=== PATIENT | female | born 1955 | race Caucasian/White ===

== ENCOUNTER → 2017-09-23 08:51 | Outpatient (CLI) | payer OTHER, SELFPAY ==
--- NOTE | 2017-09-23 08:55 | RAD_ITS ---
STUDY: X-RAY CHEST REASON FOR EXAM: Female, 61 years old. Cough, shortness of breath, right-sided chest pain for 6 months TECHNIQUE: PA and lateral views of the chest. COMPARISON: 08/28/2016 FINDINGS: The right hemidiaphragm remains elevated. There is no focal consolidation. There is no demonstrated pleural abnormality. Normal size heart. Normal mediastinum and sharon. Normal visualized pulmonary arteries. Normal visualized aortic arch and descending thoracic aorta. Normal visualized thoracic spine. Normal visualized ribs, clavicles, and shoulders. There is no demonstrated abnormality of the visualized soft tissue structures of the upper abdomen. RAD/Chest PA and Lateral IMPRESSION: No acute process in the chest. No significant change from 08/28/2016 Electronically Signed: Mu Alas DO at 9:14 EDT Tel , Service support ,
== END ==
PROVIDERS: Family Provider Family Medicine; PCP Family Medicine; Visit Provider Family Medicine
DX: R05 Cough (principal)
CPT/HCPCS: 71046

== ENCOUNTER → 2018-03-04 07:01 | Outpatient (CLI) | payer OTHER, SELFPAY ==
[2018-03-04 10:18] LABS: Absolute Lymphocyte Count 2.73 X10^3/ul (0.83-4.51); Absolute Neutrophil Count 2.4 X10^3/uL (2.0-7.7); Basophil# 0.03 X10^3/uL; Basophil% 0.5 % (0-1); Eosinophil# 0.12 X10^3/uL; Hemoglobin 14.2 g/dl (12.0-15.0); Lymphocyte # 2.73 X10^3/ul (4.0); Mean Corp Hgb Conc 31.6 g/gl (32-36); Mean Corpuscular Hgb 28.9 pg (27.0-32.0); Mean Corpuscular Volume 91.5 fL (81-99); Mean Platelet Vol. 9.8 fl (6.2-12.0); Monocyte# 0.62 X10^3/uL; Monocyte% 10.5 % (0-10); Neutrophil # 2.42 X10^3/uL (2.7-7.7); Neutrophil % 40.8 % (47-70); Platelet Count 337 K/mm3 (150-450); RBC Distribution Width CV 13.8 % (11.6-14.6); RBC Distribution Width SD 45.9 fl (35.1-43.9); Red Blood Count 4.92 M/mm3 (4.2-5.4); White Blood Count 5.9 K/mm3 (4.4-11.0)
[2018-03-04 10:31] LABS: POSITIVE COUNT NO; POSITIVE DIFFERENTIAL NO; POSITIVE MORPHOLOGY NO
[2018-03-04 10:34] LABS: Vitamin D,25 Hydroxy 24.6 ng/mL (29.95-100.01)
[2018-03-04 10:45] LABS: ALB/GLOB Ratio 1.2 RATIO (0.9-2.4); AST(SGOT) 21 U/L (15-37); Alanine Aminotransfer ALT/SGPT 32 U/L (13-56); Albumin, Serum 3.7 g/dL (3.2-5.0); Alkaline Phosphatase 64 U/L (45-117); Anion Gap 9 (5-15); BUN 11 mg/dL (7-18); BUN/Creat Ratio 15.7 RATIO (10-20); Calcium,Total 8.7 mg/dL (8.5-10.1); Chloride 107 mmol/L (98-107); EST Glomerular Filtration Rate 90 mL/min (>60); Est Glom Filt Rate - Afr Amer 109 mL/min (>60); Globulin 3.2 g/dL (2.2-4.2); Glucose 82 mg/dL (74-106); Potassium 4.1 mmol/L (3.5-5.1); Protein, Total 6.9 g/dL (6.4-8.2); Sodium Level 141 mmol/L (136-145)
== END ==
PROVIDERS: Family Provider Family Medicine; PCP Family Medicine; Referring Provider Family Medicine; Visit Provider Family Medicine
DX: I34.1 Nonrheumatic mitral (valve) prolapse (principal); E55.9 Vitamin D deficiency, unspecified
CPT/HCPCS: 36415; 80053; 82306; 85025

== ENCOUNTER → 2018-08-30 10:59 | Outpatient (CLI) | payer OTHER, SELFPAY ==
[2018-08-31 12:57] LABS: Hep C Antibodies <0.1 s/co ratio (0.0-0.9)
== END ==
PROVIDERS: Family Provider Family Medicine; PCP Family Medicine; Referring Provider Family Medicine; Visit Provider Family Medicine
DX: Z11.59 Encounter for screening for other viral diseases (principal)
CPT/HCPCS: 36415; 86803

== ENCOUNTER → 2018-10-13 15:25 | Outpatient (CLI) | payer OTHER, SELFPAY ==
--- NOTE | 2018-10-13 15:30 | BD_ITS ---
STUDY: DUAL ENERGY X-RAY ABSORPTIOMETRY / DXA REASON FOR EXAM: Female, 62 years old. The patient is postmenopausal. No loss of height. TECHNIQUE: Bone Mineral Density (BMD) measurements of lumbar spine and bilateral hips were obtained. COMPARISON: Comparison is made with prior study dated March 07, 2013. FINDINGS: Lumbar Spine (L1-L4): g/cm2 (1.204) / T-score (0.3) / Z-score (1.7) Findings are suggestive of normal bone density with a low fracture risk. Left Femur Total: g/cm2 (1.019) / T-score (0.1) / Z-score (1.1) Left Femoral Neck: g/cm2 (0.928) / T-score (-0.8) / Z-score (0.5) Right Femur Total: g/cm2 (0.996) / T-score (0.1) / Z-score (0.9) Right Femoral Neck: g/cm2 (0.945) / T-score (-0.7) / Z-score (0.6) The T-Scores on the most recent prior examination were: Lumbar Spine (L1-L4): There has been improvement of bone density since the previous examination. Left Femur Total: which represents a worsening of 2.5%. Right Femur Total: which represents a worsening of 2.6%. BD/Dexa Bone Density Study IMPRESSION: The patient is considered normal as outlined below according to World [employer] Organization (WHO) criteria with a low fracture risk. There has been worsening of bone density since the previous examination. Reference Information: The T-score is the number of standard deviations above or below the standard which is normal for young adults at their peak bone mineral density. The World Health Organization (WHO) interprets the T-scores as follows: Above -1 Normal bone density Between -1 and -2.5 Osteopenia Equal to / or below -2.5 Osteoporosis As a practical clinical guideline, osteopenia may be graded as follows: Mild -1 through -1.5 Moderate -1.6 through -2.0 Severe -2.1 through -2.4 The Z-score is the number of standard deviations above or below age-matched controls. A Z-score of less than -1.5 would be considered abnormal. References: 1. NIH Osteoporosis and Related Bone Diseases http://www.osteo.org 2. International Society for Clinical Densitometry http://www.iscd.org 3. National Osteoporosis Foundation http://www.nof.org Electronically Signed: Charlie Rich, at 11:16 EDT , Service support ,
== END ==
PROVIDERS: Family Provider Family Medicine; PCP Family Medicine; Referring Provider Family Medicine; Visit Provider Family Medicine
DX: Z78.0 Asymptomatic menopausal state (principal)
CPT/HCPCS: 77080

== ENCOUNTER → 2019-03-16 14:18 | Outpatient (CLI) | payer OTHER, SELFPAY ==
[2019-03-16 16:01] LABS: Absolute Lymphocyte Count 2.75 X10^3/uL (0.83-4.51); Absolute Neutrophil Count 2.7 X10^3/uL (2.0-7.7); Basophil# 0.04 X10^3/uL; Basophil% 0.7 % (0-1); Eosinophil# 0.06 X10^3/uL; Hematocrit 44.4 % (37-47); Hemoglobin 13.9 g/dL (12.0-15.0); Lymphocyte # 2.75 X10^3/ul (4.0); Lymphocyte % 45.7 % (19-41); Mean Corp Hgb Conc 31.3 g/dL (32-36); Mean Corpuscular Hgb 27.9 pg (27.0-32.0); Mean Platelet Vol. 9.5 fl (6.2-12.0); Monocyte# 0.51 X10^3/uL; Monocyte% 8.5 % (0-10); NRBC Flagged by Analyzer 0 % (0-5); Neutrophil # 2.65 X10^3/uL (2.7-7.7); Neutrophil % 43.9 % (47-70); Platelet Count 325 K/mm3 (150-450); RBC Distribution Width SD 42.2 fl (35.1-43.9); Red Blood Count 4.99 M/mm3 (4.2-5.4)
[2019-03-16 16:07] LABS: ALB/GLOB Ratio 1.1 RATIO (0.9-2.4); AST(SGOT) 23 U/L (15-37); Alanine Aminotransfer ALT/SGPT 43 U/L (13-56); Albumin, Serum 3.9 g/dL (3.2-5.0); Alkaline Phosphatase 65 U/L (45-117); Anion Gap 7 (5-15); BUN 12 mg/dL (7-18); BUN/Creat Ratio 17.7 RATIO (10-20); Calcium,Total 9.3 mg/dL (8.5-10.1); Chloride 108 mmol/L (98-107); Cholesterol 177 mg/dL (200); Creatinine, Serum 0.68 mg/dL (0.55-1.02); EST Glomerular Filtration Rate 93 mL/min (>60); Est Glom Filt Rate - Afr Amer 113 mL/min (>60); Globulin 3.4 g/dL (2.2-4.2); Glucose 83 mg/dL (74-106); High Density Lipoprotein 65 mg/dL; Potassium 3.7 mmol/L (3.5-5.1); Protein, Total 7.3 g/dL (6.4-8.2); Sodium Level 141 mmol/L (136-145); Triglycerides 99 mg/dL; Very Low Density Lipoprotein 20 mg/dL (5-40)
[2019-03-16 16:36] LABS: Rubella IgG > 500.0 IU/mL; Vitamin D,25 Hydroxy 43.2 ng/mL (29.95-100.01)
[2019-03-21 09:11] LABS: Mumps Antibody, IgM < 0.80 AU (0.00-0.79); Rubeola IgG Ab > 300.0 AU/mL (Immune >16.4)
== END ==
PROVIDERS: PCP Family Medicine; Referring Provider Family Medicine; Visit Provider Family Medicine
DX: Z00.00 Encounter for general adult medical examination without abnormal findings (principal); E55.9 Vitamin D deficiency, unspecified; Z13.1 Encounter for screening for diabetes mellitus; Z13.220 Encounter for screening for lipoid disorders
CPT/HCPCS: 36415; 80053; 80061; 82306; 85025; 86735; 86762; 86765

== ENCOUNTER → 2019-09-07 08:32 | Outpatient (CLI) | payer OTHER, SELFPAY ==
--- NOTE | 2019-09-07 09:05 | RAD_ITS ---
STUDY: X-RAY - SACRUM/COCCYX REASON FOR EXAM: Female, 63 years old. PAIN IN SACRAL SPINE TO TAIL BONE FOR ABOUT 1-2 MONTHS. NO KNOWN INJURY. TECHNIQUE: 3 view(s) of the sacrum and coccyx were obtained. COMPARISON: None. FINDINGS: There is degenerative arthrosis of the bilateral sacroiliac joints. Normal visualized sacral ala and fused sacral bodies. Normal sacrococcygeal junction with a normal angulation. Normal coccygeal segments. Phleboliths are seen in the pelvis. RAD/Sacrum-Coccyx min 2 Views IMPRESSION: Mild degenerative changes of the sacroiliac joints bilaterally. Electronically Signed: Charlie Rich, at 12:23 EDT , Service support ,
== END ==
PROVIDERS: PCP Family Medicine; Referring Provider Nurse Practitioner Adult Health; Visit Provider Nurse Practitioner Adult Health
DX: M54.5 Low back pain (principal)
CPT/HCPCS: 72220

== ENCOUNTER → 2019-09-25 11:24 | Outpatient (CLI) | payer OTHER, SELFPAY ==
--- NOTE | 2019-09-25 11:30 | RAD_ITS ---
STUDY: X-RAY - RIGHT FOOT CLINICAL: Female, 63 years old. Right heel pain TECHNIQUE: 3 view(s) of the foot. COMPARISON: None. FINDINGS: There is a plantar calcaneal spur. Normal visualized subtalar, talonavicular, calcaneocuboid, tarsal and tarsometatarsal articulations. Normal metatarsi. Normal metatarsophalangeal joint of the great toe. Normal tibial and fibular sesamoid bones. Normal interphalangeal joint of the great toe. Normal phalanges of the great toe. Normal second through fifth metatarsophalangeal joints. Normal interphalangeal joints and phalanges of the lesser toes. The soft tissue structures are unremarkable. RAD/Foot min 3 Views IMPRESSION: Plantar spur. Electronically Signed: Charlie Rich, at 13:58 EDT , Service support ,
== END ==
PROVIDERS: PCP Family Medicine; Referring Provider Family Medicine; Visit Provider Family Medicine
DX: M79.672 Pain in left foot (principal)
CPT/HCPCS: 73630

== ENCOUNTER 2021-03-19 11:52 | Outpatient (CLI) | payer OTHER, SELFPAY ==
--- NOTE | 2021-03-19 12:00 | RAD_ITS ---
STUDY: X-RAY - LEFT WRIST REASON FOR EXAM: Female, 65 years old. Wrist injury. Pain. TECHNIQUE: 4 view(s) of the wrist were obtained. COMPARISON: None. FINDINGS: Osteopenia. Nondisplaced oblique fracture of the ulnar styloid. Osteoarthritic changes most marked at the first CMC joint. The soft tissue structures are unremarkable. RAD/Wrist min 3 Views IMPRESSION: Osteopenia with osteoarthritic changes. Ulnar styloid fracture as described. Electronically Signed: Keven Apodaca MD at 13:56 EST ,
== END 2021-03-19 23:59 | disposition short-term general hospital (02) ==
PROVIDERS: PCP Family Medicine; Referring Provider Family Medicine; Visit Provider Family Medicine
DX: S69.92XA Unspecified injury of left wrist, hand and finger(s), initial encounter (principal)
CPT/HCPCS: 73110

== ENCOUNTER 2021-03-28 14:45 | Outpatient (CLI) | payer OTHER, SELFPAY ==
--- NOTE | 2021-03-28 14:49 | RAD_ITS ---
STUDY: X-RAY - LEFT WRIST REASON FOR EXAM: Female, 65 years old. PAIN TECHNIQUE: 3 view(s) of the wrist were obtained in a plaster cast.. COMPARISON: Comparison is made with prior study dated 08/17/2021. FINDINGS: Healing fracture of the distal radius. The alignment is well maintained. Normal radiocarpal articulation. Normal distal radioulnar articulation. Normal carpal bones. Normal carpal articulations. Normal carpometacarpal articulation of the thumb. Normal second through fifth carpometacarpal articulations. Normal visualized metacarpal bones. The soft tissue structures are unremarkable. RAD/Wrist min 3 Views IMPRESSION: Healing fracture of the distal radius. The alignment is well maintained. Electronically Signed: Charlie Rich MD at 15:52 EST ,
== END 2021-03-28 23:59 | disposition home or self-care (01) ==
LOC: MTRAD 14:46
PROVIDERS: PCP Family Medicine; Referring Provider Family Medicine; Visit Provider Family Medicine
DX: S52.123A Displaced fracture of head of unspecified radius, initial encounter for closed fracture (principal)
CPT/HCPCS: 73110

== ENCOUNTER 2021-05-01 13:46 | Outpatient (CLI) | payer OTHER, SELFPAY ==
--- NOTE | 2021-05-01 13:49 | RAD_ITS ---
EXAM: XR LEFT WRIST COMPLETE, 3 OR MORE VIEWS CLINICAL INDICATION: left wrist fracture TECHNIQUE: Frontal, lateral and oblique views of the left wrist. This report was created using [employer] report generation technology. COMPARISON: 03/19/2021 and 03/28/2021. FINDINGS: BONES/JOINTS: Mild osteopenia. No visible or obvious acute fracture or dislocation. No sclerotic or destructive changes observed. SOFT TISSUES: Unremarkable. No soft tissue swelling or gas. No radiopaque foreign body. RAD/Wrist min 3 Views IMPRESSION: Mild osteopenia with no visible acute fracture or dislocation of the left wrist. This is presumably due to interval healing of the mild acute fracture of the left distal radius that was described previously. Electronically Signed: Farzad Mancera MD at 15:58 EST ,
== END 2021-05-01 23:59 | disposition home or self-care (01) ==
LOC: MTRAD 13:47
PROVIDERS: PCP Family Medicine; Referring Provider Family Medicine; Visit Provider Family Medicine
DX: S69.92XA Unspecified injury of left wrist, hand and finger(s), initial encounter (principal)
CPT/HCPCS: 73110

== ENCOUNTER → 2022-03-03 | Outpatient (CLI) | payer MEDICARE, OTHER, SELFPAY ==
[2022-03-03 13:19] LABS: ALB/GLOB Ratio 1.2 RATIO (0.9-2.4); AST(SGOT) 27 U/L (15-37); Alanine Aminotransfer ALT/SGPT 27 U/L (13-56); Albumin, Serum 3.7 g/dL (3.2-5.0); Alkaline Phosphatase 56 U/L (45-117); Anion Gap 5 (5-15); BUN 12 mg/dL (7-18); BUN/Creat Ratio 17.4 RATIO (10-20); Chloride 110 mmol/L (98-107); Cholesterol 176 mg/dL (200); Creatinine, Serum 0.69 mg/dL (0.55-1.02); EST Glomerular Filtration Rate 91 mL/min (>60); Est Glom Filt Rate - Afr Amer 110 mL/min (>60); Glucose 88 mg/dL (74-106); High Density Lipoprotein 66 mg/dL; Potassium 4.7 mmol/L (3.5-5.1); Protein, Total 6.7 g/dL (6.4-8.2); Sodium Level 141 mmol/L (136-145); Triglycerides 95 mg/dL; Very Low Density Lipoprotein 19 mg/dL (5-40)
[2022-03-03 13:23] LABS: Vitamin D,25 Hydroxy 41.5 ng/mL
== END | disposition home or self-care (01) ==
LOC: MFPLAB 10:00
PROVIDERS: Family Medicine; PCP Family Medicine; Visit Provider Family Medicine
DX: R03.0 Elevated blood-pressure reading, without diagnosis of hypertension (principal); E55.9 Vitamin D deficiency, unspecified; Z13.220 Encounter for screening for lipoid disorders
CPT/HCPCS: 36415; 80053; 80061; 82306

== ENCOUNTER → 2022-03-11 | Outpatient (CLI) | payer MEDICARE, OTHER, SELFPAY ==
--- NOTE | 2022-03-11 08:20 | BD_ITS ---
STUDY: DUAL ENERGY X-RAY ABSORPTIOMETRY / DXA REASON FOR EXAM: Female, 66 years old. M810 TECHNIQUE: Bone Mineral Density (BMD) measurements of lumbar spine and bilateral hips were obtained. COMPARISON: Comparison is made with prior study 10/13/2018. FINDINGS: Lumbar Spine (L1-L4): g/cm2 (1.088) / T-score (0.4) / Z-score (2.2) Findings are suggestive of normal bone density with a low fracture risk. Left Femur Total: g/cm2 (0.971) / T-score (0.2) / Z-score (1.5) Left Femoral Neck: g/cm2 (0.800) / T-score (-0.4) / Z-score (1.1) Right Femur Total: g/cm2 (0.879) / T-score (-0.5) / Z-score (0.7) Right Femoral Neck: g/cm2 (0.737) / T-score (-1.0) / Z-score (0.5) The T-Scores on the most recent prior examination were: Lumbar Spine (L1-L4): There has been worsening of bone density since the previous examination. Left Femur Total: which represents an improvement of 2%. Right Femur Total: which represents a worsening of 5.5%. BD/Dexa Bone Density Study IMPRESSION: The patient is considered osteopenic as outlined below according to World [employer] Organization (WHO) criteria with a low fracture risk. There has been worsening of bone density since the previous examination. Reference Information: The T-score is the number of standard deviations above or below the standard which is normal for young adults at their peak bone mineral density. The World Health Organization (WHO) interprets the T-scores as follows: Above -1 Normal bone density Between -1 and -2.5 Osteopenia Equal to / or below -2.5 Osteoporosis As a practical clinical guideline, osteopenia may be graded as follows: Mild -1 through -1.5 Moderate -1.6 through -2.0 Severe -2.1 through -2.4 The Z-score is the number of standard deviations above or below age-matched controls. A Z-score of less than -1.5 would be considered abnormal. References: 1. NIH Osteoporosis and Related Bone Diseases www osteo.org 2. International Society for Clinical Densitometry www iscd.org 3. National Osteoporosis Foundation www nof.org Electronically Signed: Charlie Rich MD at 15:13 EST ,
== END | disposition home or self-care (01) ==
LOC: OPBD 08:13
PROVIDERS: PCP Family Medicine; Visit Provider Family Medicine
DX: M81.0 Age-related osteoporosis without current pathological fracture (principal)
CPT/HCPCS: 77080

== ENCOUNTER → 2022-11-23 | Outpatient (CLI) | payer MEDICARE, OTHER, SELFPAY ==
--- NOTE | 2022-11-23 16:02 | RAD_ITS ---
INDICATION: PAIN EXAMINATION/TECHNIQUE: X-RAY - LEFT XR Knee Complete 4 Views or More 4 VIEWS COMPARISON: No relevant prior comparison study available FINDINGS: SOFT TISSUES: No soft tissue swelling or gas. No radiopaque foreign body. BONES/JOINTS: No acute fracture or subluxation.. Normal alignment. There is a small suprapatellar joint effusion. Small marginal osteophytes at the patellofemoral compartment.. No sclerotic or destructive changes observed. RAD/Knee 4 or More Views IMPRESSION: Small joint effusion. Mild degenerative change at the patellofemoral compartment. Electronically Signed: Hugo Toth MD at 0:58 EDT ,
== END | disposition home or self-care (01) ==
LOC: MTRAD 16:00
PROVIDERS: PCP Family Medicine; Referring Provider Family Medicine; Visit Provider Family Medicine
DX: M79.662 Pain in left lower leg (principal); M25.562 Pain in left knee; Z68.27 Body mass index [BMI] 27.0-27.9, adult
CPT/HCPCS: 73564

== ENCOUNTER 2023-03-17 08:34 | Outpatient (CLI) | payer MEDICARE, OTHER, SELFPAY ==
--- OUTSIDE RECORDS SUMMARY | 2023-03-17 09:00 | XMS RPT_ITS | CCD ---
Author Name Unknown Address [address] [place] [address] Organization [facility] Care Team Providers Care Automobile Detailer Name Role Phone Rae Crain MD Primary Care Provider ADINA BISHOP Referring Unavail RAE Fatima Primary Care Unavailable ADINA BISHOP Attending Unavail RAE Fatima Primary Care Unavailable Rae Crain MD Primary Care Provider [phone] Medications Completed/Discontinued Medications Medication Drug Class(es) Dates Sig (Normalized) Sig (Original) biotin 1 mg oral capsule (2 sources) biotin 1 mg cap Take by mouth. 0 Active Problems Problem Classification Problem Date Documented Da te Episodic/Chronic Menopausal disorders (4 sources) Menopausal symptom; Translations: [Menopausal and female climacteric states] Onset: 11-06-2008 11-06-2008 Chronic Other screening for suspected conditions (not mental disorders or infectious disease) (2 sources) Encounter for screening mammogram for malignant neoplasm of breast; Translations: [Patient encounter status] Onset: 05-29-2022 05-29-2022 Episodic Results Test Name Value Interpretation Reference Range Facil ity Encounters Encounter Date Encounter Type Care Provider Facility Start: 05-30-2022 Documentation procedure Mammog ga Coordinator [facility] Start: 05-30-2022 Letter encounter Mammography Coordinator [facility] Department Start: 05-29-2022 End: 05-29-2022 ambulatory ADINA LOCK Facility:[facility] Start: 05-29-2022 End: 05-29-2022 Subsequent hospital visit by physician Screen Mammo [facility] Mammogram Procedures Date Procedure Procedure Detail Performing Clinician Start: 05-29-2022 CARROLL SCREENING W JUAN Smith MD Work Phone: Start: 05-29-2022 Mammography Mammograph y Coordinator Start: 03-18-2020 Lipid 1996 panel - S dell or Plasma Screen Wstr Start: 03-03-2013 Colonoscopy Mammograph y Coordinator Plan of Treatment Date Care Activity Detail Author Start: 03-18-2025 Lipid 1996 panel - S dell or Plasma Lipid Screening [facility] Start: 03-18-2025 LIPID SCREEN LIPID SCREEN [facility] Start: 05-30-2023 Mammography [facility] Start: 03-18-2023 DIABETES SCREEN DIABETES SCREEN [facility] Start: 03-18-2023 Diabetes Screening Diabetes Screenin g [facility] Start: 03-05-2023 Pneumococcal Vaccine : 65+ (2 - PPSV23 or PCV20) Pneumococcal Vaccine: 65+ (2 - PPSV23 or PCV20) [facility] Start: 03-03-2023 Colonoscopy COLONOSCOPY [facility] Start: 03-03-2023 COLORECTAL CANCER SCREENING COLORECTAL CANCER SCREENING [facility] Start: 10-23-2022 Covid-19 Vaccine ( season) Covid-19 Vaccine ( season) [facility] Start: 10-23-2022 Influenza vaccination Influenza Vacc ine (#1) [facility] Start: 02-22-2022 ADVANCE DIRECTIVE DISCUSSION ADVANCE DIRECTIVE DISCUSSION [facility] Start: 02-22-2022 DEPRESSION ASSESSMENT DEPRESSION ASS ESSMENT [facility] Start: 02-01-2022 Urine microalbumin profile DTa P,Tdap,Td Vaccine (2 - Td or Tdap) [facility] Start: 2021 BONE DENSITY BONE DENSITY [facility] Start: 2021 Bone Density Screening Bone Density Screening [facility] Start: 2021 PNEUMOCOCCAL: 65+ (1 - PCV) PNEUMOCOCCAL: 65+ (1 - PCV) [facility] Start: 2016 RSV Vaccine (1 - 1-d ose 60+ series) RSV Vaccine (1 - 1-dose 60+ series) [facility] Start: 2006 SHINGRIX VACCINE (1 of 2) SHINGRIX V ACCINE (1 of 2) [facility] Start: 2001 COLOGUARD (FIT-DNA) COLOGUARD (FIT-D NA) [facility] Start: [address] COLONOGRAPHY [facility] Start: 2001 FECAL OCCULT BLOOD FECAL OCCULT BLOO D [facility] Start: 2001 SIGMOIDOSCOPY SIGMOIDOSCOPY [facility] Start: 11-04-1975 Urine microalbumin profile DTAP,TDAP ,TD (1 - Tdap) [facility] Start: 1974 HEPATITIS C SCREENING HEPATITIS C SC REENING [facility] Start: 1974 HIV SCREENING HIV SCREENING [facility] Immunizations Immunization Date Immunization Notes Care Provider Fa cility 11-07-2021 influenza virus vaccine, unspecified formulation Screen Wstr [facility] 11-30-2012 influenza virus vaccine, unspecified formulation Mammography Coordinator [facility] Payers Date Payer Category Payer Private Health Insurance [facility] AARP SUPPLEMENT [id number] 2022-Present [phone] [address] [place] [address] Indemnity [id number] 2022 Unknown [id number] 2022 Unknown [id number] 2021 Medicare MEDICARE MEDICAR E A AND B [id number] 2021-Present [phone] [address] [address] [place] [address] Medicare [id number] 2021 Medicare [id number] Social History Date Type Detail Facility Start: 11-25-2011 [facility] Work Phone: End: 02-22-1983 History of tobacco use Current smoker [facility] Work Phone: End: 02-22-1983 History of tobacco use Cigarette Smoker [facility] Work Phone: Start: 11-25-2011 End: 04-08-2022 Cigarettes smoked current (pack per day) - Reported 2 [facility] Start: 11-25-2011 Tobacco use and exposure Smokeless tobacco non-user [facility] Work Phone: Start: 04-08-2022 Alcohol intake Current drinke r of alcohol (finding) [facility] Start: 12-06-2013 Alcohol Comment Occasionally Krystyna nd [facility] Start: 1955 Sex Assigned At Not on file C [facility] Start: 04-08-2022 Tobacco use panel [facility] National Score (1-10 0), lower number is lower risk 67 [facility] Note 05-30-2022 Letter - Mammography Coordinator - 05/30/2022 1:14 PM EDT Note Date & Type Note Facility 05-30-2022 Miscellaneous Notes Formattin g of this note might be different from the original. June 01, 2022 PID: [id number] Batool Avelar [address] [place] [address] Dear Ms. Avelar, We are pleased to inform you that the results of your recent breast imaging exam on 05/29/2022 are normal. Early detection of cancer is very important. We also understand recommendations regarding breast cancer screening are controversial. Please discuss with your primary care provider which strategy is best for you and whether a mammogram is right for you. Your imaging studies and report will be kept on file at [facility] as part of your permanent medical record and are available for your continuing care. Thank you for allowing us to help in meeting your health care needs. Sincerely, Dr. Isaacs Interpreting Radiologist [facility] (Normal over 40) documented in this encounter [facility] Progress note 05-29-2022 Note Date & Type Note Facility 05-29-2022 Note HNO ID: [id number] Author: RT Jaz(R) Service: ? Author Type: Technologist Type: Progress Notes Filed: 05/29/2022 1:18 PM Note Text: Radiology Service Progress Note PATIENT NAME: Batool Avelar DATE OF SERVICE: May 29, 2022 TIME: 1:18 PM PATIENT IDENTITY VERIFICATION COMPLETED USING TWO (2) IDENTIFIERS: Name and Date of confirmed by patient verbally. FALL SCREENING: Has the patient had 2 falls in the last year or 1 fall with injury or currently using an Ambulatory Assistive Device (Walker, Cane, Wheelchair, Crutches, etc.)? No PATIENT GENDER DATA: Female. status: : No status: NO. PATIENT RELEVANT IMPLANT DATA REVIEWED: Not Applicable RADIOLOGY DEPARTMENT: Mammography PERIPHERAL IV DATA: Not applicable SIGNED BY: RT Jaz(R) May 29, 2022 1:18 PM [facility] History of Present illness Narrative 05-29-2022 Tatiana Hinson RT(R) - 05/29/2022 1:30 PM EDT Note Date & Type Note Facility 05-29-2022 History of Presen t illness Narrative Radiology Service Progress Note PATIENT NAME: Batool Avelar DATE OF SERVICE: May 29, 2022 TIME: 1:18 PM PATIENT IDENTITY VERIFICATION COMPLETED USING TWO (2) IDENTIFIERS: Name and Date of confirmed by patient verbally. FALL SCREENING: Has the patient had 2 falls in the last year or 1 fall with injury or currently using an Ambulatory Assistive Device (Walker, Cane, Wheelchair, Crutches, etc.)? No PATIENT GENDER DATA: Female. status: : No status: NO. PATIENT RELEVANT IMPLANT DATA REVIEWED: Not Applicable RADIOLOGY DEPARTMENT: Mammography PERIPHERAL IV DATA: Not applicable SIGNED BY: RT Jaz(R) May 29, 2022 1:18 PM documented in this encounter [facility] Progress note 04-08-2022 Note Date & Type Note Facility 04-08-2022 Note HNO ID: [id number] Author: Adina Lock MD Service: ? Author Type: Physician Type: Progress Notes Filed: 04/08/2022 2:47 PM Note Text: Batool is a 66 year old who presents for an annual gynecologic exam without complaints. Has noticed that her hair is becoming more thin recently. Had labs done recently through her primary care all within normal limits. Postmenopausal: Yes HRT use: No. Last Pap: 03/22/2012 normal HPV: N/A History of abnormal pap: No Last mammogram: 2021 normal History of abnormal mammogram: No Sexually active: Yes History of STDS: None Patient concerns for STD exposure: No. Pain with intercourse: No Postcoital bleeding: No Hot flashes: No Night sweats: No Vaginal dryness: Yes Exercise: active and routine Diet: balanced OB History T0 L2 SAB0 IAB0 Ectopic0 Multiple0 Live Births0 Mold Tooling Technician History LMP: Hysterectomy Age at Menarche: Age at First : Age at Menopause: Mold Tooling Technician History Comments: Sexual Activity: Yes; Male; Hysterectomy Contraception: Surgical PAST MEDICAL HISTORY Diagnosis Date PMH - PAST MEDICAL HISTORY OF pericardial effusion Symptomatic menopausal or female climacteric states Unspecified breast disorder FIBROCYSTIC PAST SURGICAL HISTORY Procedure Laterality Date BREAST BIOPSY LEFT COLONOSCOPY FLX DX W/COLLJ SPEC WHEN PFRMD 2002 Colonoscopy COLONOSCOPY FLX DX W/COLLJ SPEC WHEN PFRMD 03/03/2013 Colonoscopy PAST SURGICAL HISTORY OF pericardial window. PAST SURGICAL HISTORY OF chest tubes RPR COMPLEX RETINA DETACH VITRECT ANDMEMBRANE PEEL TOTAL ABDOMINAL HYSTERECT W/WO RMVL TUBE OVARY 1995 Hysterectomy, KATE/LSO FAMILY HISTORY Problem Relation Age of Onset Hypertension Mother Breast Cancer Mother 90 Alzheimer's Disease Mother Cancer Father skin Seizures Son Remission Heart Maternal Grandmother Cancer Maternal Grandmother throat Heart Maternal Grandfather Cancer Maternal Grandfather Lung Heart Paternal Grandmother pacemaker SOCIAL HISTORY Social History Tobacco Use Smoking status: Former Packs/day: 2.00 Years: 5.00 Pack years: 10.00 Types: Cigarettes Quit date: 02/22/1983 Years since quittin.1 Smokeless tobacco: Never Vaping Use Vaping Use: Never used Substance Use Topics Alcohol use: Yes Alcohol/week: 37.5 standard drinks Types: 15 Glasses of Wine (5oz) per week Comment: Occasionally Drug use: No REVIEW OF SYSTEMS Abdomen: No abdominal pain, nausea, vomiting, diarrhea, or constipation. No bloating, early satiety, indigestion, or increased flatulence. Bladder: No dysuria, gross hematuria, urinary frequency, urinary urgency, or incontinence Breast: No breast lumps, nipple d/c, overlying skin changes, redness or skin retraction Allergies and current medication updated:Yes EXAM: BP 120/72 Ht 5' 4 (1.63m) Wt 161 lb (73.0kg) BMI 27.62 kg/(m2). GENERAL: pleasant, female in no apparent distress HEENT: Normocephalic, atraumatic, mucus membranes moist, and no lesions NECK: Supple, full range of motion, no adenopathy, and thyroid normal DERMATOLOGY: Normal, without lesions. Hair is thinning but there is no signs of male pattern baldness. BREAST: soft, non-tender, symmetric, no dominant mass, normal nipple-areolar complex, no lymphadenopathy, and no nipple discharge ABDOMEN: soft, non-tender, and no masses PELVIC: external genitalia normal, normal Bartholin's glands, urethra, [place]'s glands, no vulvar lesions, good vaginal support, physiologic discharge present, normal appearing perineal body and perianal region, cervix surgically absent BIMANUAL: no adnexal masses, non-tender, and uterus surgically absent RECTOVAGINAL: deferred. NEURO: alert and oriented x3,exam grossly non-focal EXTREMITIES: normal ASSESSMENT/PLAN: 1) Health maintenance: Pap/HPV screening no longer needed Mammogram ordered Nutrition, exercise and routine health maintenance exams reviewed. Calcium/Vitamin D supplementation information provided. Colon cancer screening: up to date with screening BMD: up to date 2) Follow up one year or sooner as needed 3) spironolactone 1 tablet for 10 days out of the month for hair loss as well as minoxidil 2% solution twice daily. Labs reviewed in care everywhere. Adina Devries MD [facility] Progress note 04-08-2022 Note Date & Type Note Facility 04-08-2022 Note HNO ID: [id number] Author: Rosemarie Miguel Ma Service: ? Author Type: ? Type: Progress Notes Filed: 04/08/2022 2:47 PM Note Text: Quality Assurance Supervisor Trim offered: Patient declines. [facility] Evaluation note Note Date & Type Note Facility documented in this encounter [facility] Reason for referral (narrative) Diagnostic Procedure Only (Routine) - Closed Note Date & Type Note Facility Referral ID Status Reason Start Date Expiration Date V isits Requested Visits Authorized [id number] Closed Auto-Generate d Referral 04/08/2022 05/08/2023 1 1 [facility] Reason for visit Narrative Diagnostic Procedure Only (Routine) - Closed Note Date & Type Note Facility Referral ID Status Reason Start Date Expiration Date V isits Requested Visits Authorized [id number] Closed Auto-Generate d Referral 04/08/2022 05/08/2023 1 1 [facility] Summary Purpose Family History No Family History Records Found Advance Directives No Advanced Directives Records Found Additional Source Comments Source Comments (unrecognize d section and content) In the event this informatio n is protected by the Federal Confidentiality of Alcohol and Drug Abuse Patient Records regulations: The Federal rules restrict any use of the information to criminally investigate or prosecute any alcohol or drug abuse patient.[facility] the event this information is protected by the Federal Confidentiality of Alcohol and Drug Abuse Patient Records regulations: The Federal rules restrict any use of the information to criminally investigate or prosecute any alcohol or drug abuse patient.[facility] Care Teams (unrecognized sec tion and content) Automobile Detailer Relationship Specialty Start Date End Date Rae Crain MD [address] [place] [id number] PCP - General 05/17/03 INFORMATION SOURCE (unrecogn ized section and content) FOR RECORDS PERTAINING TO PATIENTS WHO ARE OR HAVE BEEN ENROLLED IN A CHEMICAL DEPENDENCY/SUBSTANCEABUSE PROGRAM, SOME INFORMATION MAY BE OMITTED. This clinical summary was aggregated from multiple sources. Caution should be exercised in using it in the provision of clinical care. This summary normalizes information from multiple sources, and as a consequence, information in this document may materially change the coding, format and clinical context of patient data. In addition, data may be omitted in some cases. CLINICAL DECISIONS SHOULD BE BASED ON THE PRIMARY CLINICAL RECORDS. [facility]. provides no warranty or guarantee of the accuracy or completeness of information in this document.
[2023-03-17 10:50] LABS: Absolute Neutrophil Count 1.2 X10^3/uL (2.0-7.7); Basophil# 0.04 X10^3/uL; Eosinophil# 0.07 X10^3/uL; Eosinophils% 1.7 % (0-5); Hematocrit 44.1 % (37-47); Lymphocyte % 57.7 % (19-41); Mean Corp Hgb Conc 31.7 g/dL (32-36); Mean Corpuscular Hgb 27.6 pg (27.0-32.0); Mean Platelet Vol. 9.6 fl (6.2-12.0); Monocyte# 0.49 X10^3/uL; Monocyte% 11.8 % (0-10); NRBC Flagged by Analyzer 0 % (0-5); Neutrophil # 1.16 X10^3/uL (2.7-7.7); Neutrophil % 27.8 % (47-70); Platelet Count 348 K/mm3 (150-450); RBC Distribution Width CV 13.8 % (11.6-14.6); RBC Distribution Width SD 44.2 fl (35.1-43.9); Red Blood Count 5.07 M/mm3 (4.2-5.4); White Blood Count 4.2 K/mm3 (4.4-11.0)
[2023-03-17 11:04] LABS: Vitamin D,25 Hydroxy 54.6 ng/mL
[2023-03-17 11:28] LABS: ALB/GLOB Ratio 1.2 RATIO (0.9-2.4); AST(SGOT) 24 U/L (15-37); Alanine Aminotransfer ALT/SGPT 28 U/L (13-56); Albumin, Serum 3.6 g/dL (3.2-5.0); Alkaline Phosphatase 48 U/L (45-117); Anion Gap 6 (5-15); BUN 11 mg/dL (7-18); BUN/Creat Ratio 16.1 RATIO (10-20); Calcium,Total 9.4 mg/dL (8.5-10.1); Chloride 108 mmol/L (98-107); Cholesterol 176 mg/dL (200); Creatinine, Serum 0.68 mg/dL (0.55-1.02); EST Glomerular Filtration Rate 91 mL/min (>60); Est Glom Filt Rate - Afr Amer 111 mL/min (>60); Ferritin 107 ng/mL (8-252); Globulin 3.1 g/dL (2.2-4.2); Glucose 102 mg/dL (74-106); High Density Lipoprotein 52 mg/dL; Protein, Total 6.7 g/dL (6.4-8.2); Sodium Level 139 mmol/L (136-145); Triglycerides 81 mg/dL; Very Low Density Lipoprotein 16 mg/dL (5-40)
== END 2023-03-17 23:59 | disposition home or self-care (01) ==
LOC: MFPLAB 08:35
PROVIDERS: PCP Family Medicine; Visit Provider Family Medicine
DX: M85.80 Other specified disorders of bone density and structure, unspecified site (principal); Z83.49 Family history of other endocrine, nutritional and metabolic diseases; Z13.6 Encounter for screening for cardiovascular disorders
CPT/HCPCS: 36415; 80053; 80061; 82306; 82728; 85025

== ENCOUNTER 2023-03-30 10:00 | Outpatient (RCR) | payer MEDICARE, OTHER, SELFPAY ==
--- NOTE | 2023-01-19 09:51 | HP.PTEVAL ---
Patient's Visit Information Visit Information Visit Information: IVETH SARMIENTO is a 67 year old F referred to Physical Therapy by Dr. Marco Antonio Crain MD with a diagnosis of UNILATERAL PRIMARY OSTEOARTHRITIS ,LEFT KNEE ,LEFT KNEE PAIN. Date of Evaluation: 01/19/23 Physical Therapist: Ramon Mckenna, PT, Cert MDT, OCS Visit Plan Frequency: 2x /Week Duration: 4 Weeks Plan: PT INTERVETIONS ROM.FLEXABILITY KNEE ,STRENGTHNEING QUADS/HAMS/HIP , FUNCTIONAL STRENGTHENING AND MODALTIES Subjective Subjective: This 67 y/o female presents to physical therapy with left knee pain. Patient left knee pain ~ 3 months without etiology of pain. Patient seen DR Crain recommended PT and did x-rays showed DJD mild had cortisone injection, Pain located global. Patient DR peña want to do MRI. Patient aggravating factors walking ,bending /squatting ,kneeling and stairs ,twisting. Alleviating factors rest and medication meloxicam. Denies paresthesia/tingling . Patient able to sleep at night. Patient condition affects QOL and function and housework tasks. Patient goals to decrease pain. SOCIAL: VOCATION: retired Pain Left Knee: Pain Intensity (Out of 10): 4 Pain Intensity Range: 10 Objective Objective: POSTURE: mild forward posture knee flexed GAIT: reciprocal pattern knee flexed antalgic gait left side NEURO: denies paresthesia/tingling FLEXABLITY: hamstrings min tight AROM: 2-15 degrees flexion ,OP extension increases pain MMR: ( peak force) quads 33.2 pain, hamstrings 35.3 ,hip flexion 28,8 ,hip abd 23.3 EDEMA: mild effusion Special Tests L Knee Guy - Meniscus: Positive L Knee Posterior Drawer - PCL: Negative L Knee Valgus - MCL: Negative L Knee Varus - LCL: Negative L Knee Patellar Apprehension - PFS: Negative L Knee Patellar Grind - PFS: Negative Balance/Special Test Scores Lower Extremity Functional Score: 28 Goals Goal 1:: Patient to be I with HEP Goal Time Frame: 4-6 Weeks Goal 2:: Patient to ambulate with normal lalita 80% of the time Goal Time Frame: 4-6 Weeks Goal 3:: Patient to to demonstrate 50% improvement with function and less pain Goal Time Frame: 4-6 Weeks Goal 4:: Patient to improve peak force of quads/hams/hip by 5# strength to improve function Goal Time Frame: 4-6 Weeks Goal 5:: Patient to improve LFES score by 5 points to improve function Goal Time Frame: 4-6 Weeks Rehabilitation Potential Physical Therapy Diagnosis: This patient has left knee pain possible meniscus with pain ,weakness decrease gait impairs function/stairs thus benefit from skilled PT Rehabilitation Potential: Good Anticipated Interventions Patient/Client Instruction: Educate patient on: Condition and Plan of Care For the Purpose of:: To decrease pain, To increase ROM, To improve muscle performance and motor function, To improve ability to perform ADL's, To increase tolerance to activity/condition/position, To improve ability of physical actions for home/community/work/leisure, To improve health of tissue, To decrease soft tissue restriction and To increase flexibility/ROM Therapeutic Exercise to Include: Strength training, Endurance training, Balance training, Flexibilty training, Passive ROM and Active ROM Comment: QUADS/HAMS/HIP For the Purpose of:: To decrease pain, To increase ROM, To improve muscle performance and motor function, To improve ability to perform ADL's, To increase tolerance to activity/condition/position, To improve ability of physical actions for home/community/work/leisure, To improve health of tissue, To decrease soft tissue restriction, To improve endurance and To reduce risk of recurrence TENS: Yes IF ES: Yes Cryotherapy (ice pack, ice massage): Yes Thermo therapy (hot pack): Yes Ultrasound (thermal/non thermal): Yes For the Purpose of:: To decrease pain, To increase ROM, To improve nutrient delivery to tissue, To increase oxygenation perfusion, To improve muscle performance and motor function, To improve health of tissue, To decrease soft tissue restriction and To increase flexibility/ROM Text: Thank you for the opportunity to evaluate your patient. For Medicare and Medicare HMO plans, please review the plan of care and approve it. It will need to be FAXED BACK to us at [phone] for Medicare purposes. For Medicare only, by signing this I certify the plan of care. Please let me know if there are questions or concerns regarding this plan of care. Physician Signature: Date:
--- NOTE | 2023-03-30 10:25 | HP.PTDCSUM ---
Discharge Summary D/C summary: It has been my pleasure to treat IVETH SARMIENTO referred by Dr. Marco Antonio Crain MD, with the diagnosis of UNILATERAL PRIMARY OSTEOARTHRITIS LEFT KNEE, LEFT KNEE PAIN for a total of 13 visit(s). Discharge Date: 03/30/23 Please see the following information for a summary of their discharge status. Subjective Subjective: Pain is better C/O tightness and ambulates with limping and pain and tired ~ 3/4 mile . Pain Left Knee: Pain Intensity (Out of 10): 2 Overall Improvement % Improvement: 60 Objective Objective/Function: POSTURE: mild forward posture knee flexed GAIT: reciprocal pattern knee flexed antalgic gait left side NEURO: denies paresthesia/tingling FLEXABLITY: hamstrings min tight AROM: 2-135 degrees flexion ,OP MMR: ( peak force) quads 64.2 pain, hamstrings 69.4 ,hip flexion 60 ,hip abd 83.3 EDEMA: mild LATERAL effusion Goals Goal 1:: Patient to be I with HEP Goal 2:: Patient to ambulate with normal lalita 80% of the time Goal Progress: Goal Met Goal 3:: Patient to to demonstrate 80% improvement with function and less pain( NEW GOALS) Goal Progress: Progressing Goal 4:: Patient to improve peak force of quads/hams/hip by 5# strength to improve function( new goal) Goal Progress: Goal Met Goal 5:: Patient to improve LFES score by 5 points to improve function( new goal) Goal Progress: Goal Met Plan Plan: RTD ,POSSIBLE MRI D/C Information Discharge Comments: HEP d/c sentence: If there are questions or concerns regarding this patient's physical therapy, please feel free to call me at [phone]. Thank you for the referral of this patient. Sincerely, Ramon Mckenna, PT, Cert MDT, OCS Balance/Gait/Functional tests Balance/Special Test Scores Lower Extremity Functional Score: 58 Improvement % Improvement: 60
== END 2023-03-30 19:00 | disposition home or self-care (01) ==
LOC: PT 10:00
PROVIDERS: PCP Family Medicine; Referring Provider Orthopaedic Surgery; Visit Provider Orthopaedic Surgery
DX: M17.12 Unilateral primary osteoarthritis, left knee (principal); M25.562 Pain in left knee
CPT/HCPCS: 97110; 97140; 97162; 97530

== ENCOUNTER → 2023-08-19 | Outpatient (CLI) | payer MEDICARE, OTHER, SELFPAY ==
--- NOTE | 2023-08-19 16:17 | RAD_ITS ---
STUDY: X-RAY RIGHT FOOT, FIFTH TOE REASON FOR EXAM: Female, 67 years old. PAIN IN TOE - RIGHT FIFTH TOE ON RIGHT FOOT TECHNIQUE: 5 views of the right fifth toe were obtained. COMPARISON: None. FINDINGS: Normal visualized metatarsus. Normal metatarsophalangeal (M.T.P) joint. Normal interphalangeal joints. Normal phalanges and interphalangeal joints. There is no demonstrated fracture. There is mild soft tissue swelling of the fifth toe. RAD/Toe(s) Min 2 Views IMPRESSION: Mild soft tissue swelling of the fifth toe. No demonstrated fracture. Electronically Signed: Cuco Garcias MD at 15:49 EDT ,
== END | disposition home or self-care (01) ==
LOC: MTRAD 16:15
PROVIDERS: PCP Family Medicine; Referring Provider Family Medicine; Visit Provider Family Medicine
DX: M79.674 Pain in right toe(s) (principal)
CPT/HCPCS: 73660

== ENCOUNTER → 2024-03-14 | Outpatient (CLI) | payer MEDICARE, OTHER, SELFPAY ==
[2024-03-14 10:01] LABS: Absolute Lymphocyte Count 2.49 X10^3/uL (0.83-4.51); Absolute Neutrophil Count 1.6 X10^3/uL (2.0-7.7); Basophil# 0.03 X10^3/uL; Basophil% 0.6 % (0-1); Eosinophil# 0.08 X10^3/uL; Eosinophils% 1.7 % (0-5); Hematocrit 46.4 % (37-47); Hemoglobin 14.4 g/dL (12.0-15.0); Lymphocyte # 2.49 X10^3/ul (0.83-4.51); Lymphocyte % 53.5 % (19-41); Mean Corpuscular Hgb 27.8 pg (27.0-32.0); Mean Corpuscular Volume 89.6 fL (81-99); Mean Platelet Vol. 9.3 fl (6.2-12.0); Monocyte# 0.49 X10^3/uL; Monocyte% 10.5 % (0-10); NRBC Flagged by Analyzer 0 % (0-5); Neutrophil # 1.55 X10^3/uL (2.7-7.7); Neutrophil % 33.5 % (47-70); Platelet Count 348 K/mm3 (150-450); RBC Distribution Width CV 13.3 % (11.6-14.6); RBC Distribution Width SD 43.7 fl (35.1-43.9); Red Blood Count 5.18 M/mm3 (4.2-5.4); White Blood Count 4.7 K/mm3 (4.4-11.0)
[2024-03-14 13:39] LABS: Cholesterol 181 mg/dL (200); High Density Lipoprotein 65 mg/dL; Triglycerides 81 mg/dL; Very Low Density Lipoprotein 16 mg/dL (5-40)
[2024-03-16 11:07] LABS: Vitamin D 1,25-Dihydroxy 55.2 pg/mL (24.8-81.5)
== END | disposition home or self-care (01) ==
LOC: MFPLAB 09:12
PROVIDERS: PCP Family Medicine; Referring Provider Family Medicine; Visit Provider Family Medicine
DX: I10 Essential (primary) hypertension (principal)
CPT/HCPCS: 36415; 80061; 82652; 85025

== ENCOUNTER → 2024-04-17 | Outpatient (CLI) | payer MEDICARE, OTHER, SELFPAY ==
--- NOTE | 2024-04-17 15:35 | VDLE_ITS ---
Reason For Study Reason For Study: Left leg swelling RIGHT LEFT CFV is compressible, spontaneous, phasic, competent GSV is normal. and demonstrates normal augmentation. CFV is compressible, spontaneous, phasic, competent, Procedure and demonstrates normal augmentation. This is a venous duplex using B-mode, color flow and FV is compressible, spontaneous, phasic, competent spectral Doppler. and demonstrates normal augmentation. Exam performed in department. POP V is compressible, spontaneous, phasic, competent A preliminary report was called and/or faxed to Vignesh and demonstrates normal augmentation. PA. T/P Trunk is compressible. PTV is compressible. LT PerV is compressible. Nonvascularized structure noted in the left popliteal fossa that measures 1.19 x 4.01 x 4.12 cm. VL/Venous Duplex US, Unilateral Interpretation Summary Deep veins of the left lower extremity are patent and compressible segmentally. There is no evidence of left lower extremity deep vein thrombosis. Valvular competence appears intact within the p roximal deep venous system on the left . The left great saphenous vein appears patent and compressible segmentally. The right common femoral vein is patent and compressible . A non-vascular, hypoechoic structure is noted in the left poplit eal space, measuring 1.19 cm x 4.01 cm x 4.12 cm. This may represent a popliteal cyst. Clinical correlation is advised. Ordering Physician: Yahaira Medellin Referring Physician: Jessica Ayers Performed By: Sheree Orozco RVT
== END | disposition home or self-care (01) ==
LOC: CVS 15:33
PROVIDERS: PCP Family Medicine
DX: R22.42 Localized swelling, mass and lump, left lower limb (principal); M79.662 Pain in left lower leg
CPT/HCPCS: 93971

== ENCOUNTER → 2024-05-10 | Outpatient (CLI) | payer MEDICARE, OTHER, SELFPAY ==
--- NOTE | 2024-05-10 10:04 | BD_ITS ---
PROCEDURE: DEXA BONE DENSITY STUDY 05/10/2024 REASON FOR EXAM: F, age 68 y/o . Postmenopausal. TECHNIQUE: DXA scan of the lumbar spine and both hips. REFERENCE LINKS: ISCD Adult Positions COMPARISON: Comparison is made with prior study dated February 23, 2022. FINDINGS: Lumbar Spine (L1-L4): g/cm2 (1.075)/T-score (0.3)/Z-score (2.2) findings are suggestive of normal with a low fracture risk. Left Femur Total: g/cm2 (0.852)/T-score (-0.7)/Z-score (0.6) Left Femoral Neck: g/cm2 (0.786)/T-score (-0.6)/Z-score (1.1) Right Femur Total: g/cm2 (0.900)/T-score (-0.3)/Z-score (1.0) Right Femoral Neck: g/cm2 (0.773)/T-score (-0.7)/Z-score (1.0) The T-Scores on the most recent prior examination were: Lumbar Spine (L1-L4): There has been worsening of bone density since the previous examination. Left Femur Total: Worsening of 12.3%. Right Femur Total: Improvement of 2.4%. BD/Dexa Bone Density Study IMPRESSION: The patient is considered normal as outlined below according to World [employer] anization (WHO) criteria with a low fracture risk. There has been worsening of bone density since the previous examination. Recommend follow-up as clinically warranted. Reading Location: [place] [address]
== END | disposition home or self-care (01) ==
LOC: OPBD 09:55
PROVIDERS: PCP Family Medicine; Referring Provider Family Medicine; Visit Provider Family Medicine
DX: M81.0 Age-related osteoporosis without current pathological fracture (principal)
CPT/HCPCS: 77080